=== PATIENT | female | born 1995 | race Caucasian/White ===

== ENCOUNTER 2019-03-05 12:09 | Emergency (ER) | payer OTHER ==
[~2019-03-05] VITALS: Ht 162.6 cm; Wt 67.9 kg
[2019-03-05] MEDS ORDERED: FLINCHW12 PO (12:15)
[2019-03-05 13:04] LABS: BASO % 0.5 % (0.0-1.0); EOS # 0.1 10^3/uL (0.0-0.5); EOS % 1.1 % (0.0-3.0); HEMATOCRIT 35.4 % (36.0-47.0); LYMPH # 0.9 10^3/uL (1.5-5.0); LYMPH % 15.5 % (24.0-44.0); MEAN CORPUSCULAR HEMOGLOBIN 30.8 pg (27.0-33.0); MEAN CORPUSCULAR HGB CONC 33.9 g/dl (32.0-36.5); MEAN CORPUSCULAR VOLUME 90.8 fl (80.0-96.0); MONO # 0.5 10^3/uL (0.0-0.8); MONO % 8.3 % (0.0-5.0); NEUTROPHILS # 4.2 10^3/uL (1.5-8.5); NEUTROPHILS % 74.1 % (36.0-66.0); PLATELET COUNT, AUTOMATED 176 10^3/uL (150-450); WHITE BLOOD COUNT 5.7 10^3/uL (4.0-10.0)
[2019-03-05 13:26] LABS: HCG, SERUM QUALITATIVE POSITIVE (NEGATIVE)
[2019-03-05 13:27] LABS: BLOOD UREA NITROGEN 5 MG/DL (7-18); CALCIUM LEVEL 8.6 MG/DL (8.5-10.1); CARBON DIOXIDE LEVEL 25 MEQ/L (21-32); CHLORIDE LEVEL 107 MEQ/L (98-107); CREATININE FOR GFR 0.53 MG/DL (0.55-1.30); GLOMERULAR FILTRATION RATE > 60.0 (>60); GLUCOSE, FASTING 71 MG/DL (70-100); POTASSIUM SERUM 3.9 MEQ/L (3.5-5.1); SODIUM LEVEL 137 MEQ/L (136-145)
[2019-03-05 14:16] LABS: HCG, SERUM QUANTITATIVE 33211 MIU/ML
--- NOTE | 2019-03-05 14:58 | REP ---
Obstetric sonography: History: Supervision of . Abdominal pain. Findings: Scanning through the gravid uterus demonstrates a viable single intrauterine gestation in a oblique head to the maternal right lie. motion is observed and heart rate is recorded at 145 beats per minute. A posterior fundal placenta is seen without evidence of previa or abruption, grade 0. Amniotic fluid is subjectively normal. Closed cervical length is measured at 4.2 cm, viewed transabdominally. There is a 1.8 cm cyst in the maternal left ovary likely corpus luteum. Exam quality was inhibited by early gestational age and position. The following anatomic structures are identified and felt to be unremarkable: cranium, choroid plexus, cavum, cerebellum and posterior fossa, left-sided stomach, abdominal wall cord insertion, three-vessel cord, Biometry chart: BPD 3.1 cm = 15 weeks 5 days Head circumference 11.5 cm = 15 weeks 4 days Abdominal circumference 9.3 cm = 15 weeks 3 days Femur length 1.6 cm = 14 weeks 6 days Humeral length 1.8 cm = 15 weeks 2 days HC/AC ratio normal 1.24. Cephalic index normal 0.74. Estimated weight 118 grams, 0 pounds 4 ounces, 35th percentile for 15 weeks 3 days. Impression: Viable single intrauterine gestation at 15 weeks 3 days by today's composite sonographic criteria. SHAUN by today's sonography August 24, 2019. anatomic survey is less than complete due to early gestational age and position. No complication is identified. Electronically Signed by Sebastian Rogers MD 03/05/2019 03:04 P
[2019-03-05 16:18] VITALS: BP 108/55
== END 2019-03-05 16:35 | disposition home or self-care (01) ==
LOC: M ED 12:09
DX: O99.89 Other specified diseases and conditions complicating pregnancy, childbirth and the puerperium (principal); R10.2 Pelvic and perineal pain; Z3A.15 15 weeks gestation of pregnancy; Z67.10 Type A blood, Rh positive
CPT/HCPCS: 36415; 76811; 80048; 81001; 81002; 81025; 84702; 84703; 85025; 86900; 86901; 87088; 99283; G0463

== ENCOUNTER 2019-05-31 13:14 | Outpatient (CLI) | payer OTHER ==
[~2019-05-31] VITALS: Ht 162.6 cm; Wt 74.8 kg
[~2019-05-31 13:14] MED LIST: FLINCHW12 PO
== END 2019-05-31 14:35 | disposition home or self-care (01) ==
LOC: M LDO 13:14
PROVIDERS: ATTEND Advanced Practice Midwife
DX: O26.892 Other specified pregnancy related conditions, second trimester (principal); Z3A.27 27 weeks gestation of pregnancy; O99.013 Anemia complicating pregnancy, third trimester

== ENCOUNTER 2019-08-23 19:40 | Outpatient (CLI) | payer OTHER ==
--- NOTE | 2019-08-24 03:03 | HPE ---
DATE OF ADMISSION: 08/23/2019 A 24-year-old, 4, para 2, abortio 1, last menstrual period (LMP) 11/21/2018, estimated date of confinement (EDC) 08/28/2019, at 39 and 2 weeks of gestation with a history of membrane sweeping by her provider, now thinks she has ruptured membranes and has lost her mucus plug. RISK FACTORS: She has had anemia. Chlamydia positive. Test of cure was negative. Group B streptococcus (GBS) positive, and previous history of shoulder dystocia with a fractured clavicle. PAST HISTORY: April 2015, spontaneous vaginal delivery, 8 pounds 11 ounces at 38 weeks of gestation. February 2017, at 38 weeks, 9 pounds 1 ounce, shoulder dystocia, forceps delivery, fractured clavicle. December of 2017, termination of (TOP), had a dilatation and curettage (D and C), no consequences. LABS: O positive, HIV negative, hepatitis negative, RPR negative, rubella immune. Varicella immune. Urine negative. C positive. Test of cure negative. G negative. One-hour glucose 78. GBS is positive. Blood pressure 111/74, respirations 18, pulse 89, temperature is 99.0. Urine is not available. On examination, no distress. Symphysis fundus height is 38. Category I strip with marked variability and accelerations. No decelerations. No contractions. Cervix is posterior, thick, 2-3 cm. Bulging membranes were noted. There was some mucus on the glove, but the head is ballotable. Our plan of management is to discharge her with precautions. Reviewed induction of labor parameters, and she was discharged undelivered. The precautions were kick chart, premature rupture of membranes, bleeding, or contractions 5-7 minutes apart, moderate intensity, 40 seconds. The patient expressed understanding and was discharged undelivered.
== END 2019-08-23 20:35 | disposition home or self-care (01) ==
LOC: M LDO 19:40
PROVIDERS: ATTEND Obstetrics & Gynecology
DX: O47.1 False labor at or after 37 completed weeks of gestation (principal); O99.013 Anemia complicating pregnancy, third trimester; D64.9 Anemia, unspecified; O99.820 Streptococcus B carrier state complicating pregnancy; O98.313 Other infections with a predominantly sexual mode of transmission complicating pregnancy, third trimester; A56.8 Sexually transmitted chlamydial infection of other sites; Z3A.39 39 weeks gestation of pregnancy; Z87.59 Personal history of other complications of pregnancy, childbirth and the puerperium
CPT/HCPCS: 59025; G0378; G0463

== ENCOUNTER 2019-08-24 07:07 | Inpatient (IN) | payer OTHER ==
[~2019-08-24] VITALS: Ht 162.6 cm; Wt 82.5 kg
[2019-08-24] MEDS ORDERED: PENICILLIN G POTASSIUM IV 5 MU in D5W MINI-BAG PLUS 100 ML IV STA (07:29)
[2019-08-24] MEDS ORDERED: LR 1,000 ML IV SCH (07:29)
[2019-08-24] MEDS ORDERED: LACTATED RINGER'S 1000 ML IV ONE (07:30)
--- NOTE | 2019-08-24 08:02 | HPE ---
DATE OF ADMISSION: 08/24/2019 24-year-old 4, para 2, abortio 1, last menstrual period (LMP) 11/21/2018, estimated date of confinement (EDC) 08/28/2019 at 39 and 3 of gestation with a history of membrane sweeping previously. She thought she was in labor and thought her membranes were ruptured. These were negative at the time of evaluation at 0300. She came back today in active labor as she is 6-7 cm, bulging membranes, 100% effaced, -3 station, in significant discomfort from her contractions. Category 1 strip. RISK FACTORS: She had anemia. She was chlamydia positive and test of cure was negative. Group B streptococcus (GBS) is positive. Previous history shoulder dystocia with a fractured clavicle after forceps delivery and induction of labor. Proven pelvis to 9 pounds 1 ounce and previous delivery baby was 8 pounds 6 ounces with no issues. PAST HISTORY: April 2015 - spontaneous vaginal delivery 8 pounds 11 ounces of 38 weeks. February 2017 - 38 weeks, 9 pounds 1 ounce, shoulder dystocia forceps delivery fracture clavicle. December 2017 - termination of (TOP) and dilation and curettage. No consequences. LABS: O+, HIV negative, hep negative, RPR negative, rubella immune, varicella immune. Urine was negative. Chlamydia was positive, test of cure was negative. GBS was positive. 1-hour glucose was 78. Presently a blood pressure, pulse, respirations are within normal limits. She is afebrile at 99.0. Urine was not available. PHYSICAL EXAMINATION: In the examination she is distressed. Symphysis fundus height is 38. Category 1 strip marked variability with accelerations, no decelerations. Contractions are every 4, moderate in intensity. Cervix is 100% effaced, 6-7, bulging membranes, -3 station. There was show on the glove. The rest of the examination unremarkable. She is normocephalic, atraumatic. Neck: Full range of motion. Pupils equally reactive to light. Distal pulses symmetric. No evidence of deep venous thrombosis (DVT), pulmonary embolus (PE) or superficial phlebitis. Chest is clear bilaterally bases. No wheezes or rhonchi. No rashes, lesions or pruritus. No arthralgia, myalgia. No complaint joint pain. No complaint cough, wheeze, shortness of breath or dyspnea on exertion. No bleeding. Neuro complete. No incontinency or frequency. No nausea, vomiting, diarrhea or constipation. No diabetic issues. GYNECOLOGIC HISTORY: No abnormal Pap smears. Was sexually transmitted disease (STD) positive but test of cure was negative. PAST MEDICAL HISTORY: Unremarkable. PAST SURGICAL HISTORY: Unremarkable. FAMILY HISTORY: Noncontributory. SOCIAL HISTORY: She does not smoke, drink abuse drugs. No domestic violence. We discussed the consent for delivery. In view of the fact that she had a shoulder dystocia, we strongly recommend an epidural in place. We discussed the possibility of requiring a section depending on the circumstances and situation that arises. Otherwise, vaginal delivery was discussed. This is again delivery through the vagina with possible use of forceps or vacuum if needed for maternal or indications. There are devices which can assist with vaginal delivery when normal pushing efforts cannot achieve delivery on their own or when delivery is needed in emergency for the baby's well-being. Medications may be used to augment labor including Pitocin and this may help achieve delivery in emergency situations. Because of well being section may be indicated and this will be discussed with her provider prior to performing the section. section is delivery through the abdomen with an incision and usually done only for clinical indications. Risks of vaginal delivery include not limited to bleeding, infection, injury to the vagina pelvic structures, injury to baby, damage to the uterus, reaction to anesthesia, uterine rupture, uterus risk of hysterectomy for life-threatening bleeding or . Medications used to induce or augment labor may increase risk for infection, uterine tachysystole, uterine rupture, heart rate abnormalities, need for emergency section or possible hysterectomy, hemorrhage or . Other indications are use of forceps or vacuum may increase risk of perineal or vaginal lacerations, risk of urinary bowel incontinence. Risk of forceps or vacuum include but not limited to scratches, hematomas on the head or intracranial bleed of the baby. The patient verbalized understanding. We had a 40-minute discussion. PLAN: Hydrate the patient. Appropriate antibiotic coverage. Epidural as required.
[2019-08-24] MEDS ORDERED: OXYTOCIN 30 UNITS IN 0.9% NaCl 500ML IV BAG (J2590) As Ordered ONE (08:14)
[2019-08-24 08:20] LABS: HEMATOCRIT 34.1 % (36.0-47.0); HEMOGLOBIN 11.2 g/dl (12.0-15.5); MEAN CORPUSCULAR HEMOGLOBIN 27.4 pg (27.0-33.0); MEAN CORPUSCULAR HGB CONC 32.8 g/dl (32.0-36.5); MEAN CORPUSCULAR VOLUME 83.4 fl (80.0-96.0); PLATELET COUNT, AUTOMATED 186 10^3/uL (150-450); RED BLOOD COUNT 4.09 10^6/uL (4.00-5.40); WHITE BLOOD COUNT 13.5 10^3/uL (4.0-10.0)
[2019-08-24] MEDS ORDERED: OXYTOCIN DRIP 30 UNITS in IV 1 EA IV SCH (08:39)
[2019-08-24] MEDS ORDERED: MOM 30ML SUSPENSION UDC PO PRN (08:45)
[2019-08-24] MEDS ORDERED: DOCUSATE SODIUM 100 MG CAP PO PRN (08:45)
[2019-08-24] MEDS ORDERED: ONDANSETRON 4MG/2ML VIAL (J2405) IV PRN (08:45)
[2019-08-24] MEDS ORDERED: METHYLERGONOVINE MALEATE 0.2 MG TAB PO PRN (08:45)
[2019-08-24] MEDS ORDERED: MEASLES,MUMPS,RUBELLA VACCINE INJ (MMR-II) (90707) SC SCH (08:45)
[2019-08-24] MEDS ORDERED: DIBUCAINE 1% OINTMENT 30GM TOP PRN (08:45)
[2019-08-24] MEDS ORDERED: ACETAMINOPHEN 500 MG TAB PO PRN (08:45)
[2019-08-24] MEDS ORDERED: IBUPROFEN 800 MG TAB PO PRN (08:45)
[2019-08-24] MEDS: PRENATAL VITAMINS CHEWABLE TABLET PO SCH (09:00)
[2019-08-24] MEDS ORDERED: PENICILLIN G POTASSIUM IV 2.5 MU in IV 1 EA IV SCH (12:00)
[2019-08-24 15:14] VITALS: BP 111/68
[2019-08-24 18:32] VITALS: BP 101/59
[2019-08-25 06:00] VITALS: BP 104/64
--- NOTE | 2019-08-25 09:05 | IPNPDOC ---
Progress Note Date of Service: Aug 25, 2019 Day#: 1 Progress Note SUBJECT: Patient is a 24 yo S/P ppd #1. Patient has no concerns today. She has been ambulating, voiding spontaneously without issue and tolerating regular diet. Breast feeding without issue. Reports lochia is like a normal period. she is considering depo provera vs. LARC for contraceptives. She did not get full 4 hrs after first dose of PCN prior to delivering. OBJECTIVE: VITAL SIGNS: Within normal limits, afebrile. Alert and oriented times three. Abdomen: Fundus firm at U-2. Soft, NTTP. LE: no edema/erythema/tenderness A/P patient is ppd #1, doing well. discussed contraceptive options, will revisit with appointment. encourage bf. routine ppc. likely d/c tomorrow. le, DO VS, I&O, 24H, Fishbone Vital Signs/I&O Vital Signs Date Time Temp Pulse Resp B/P (MAP) Pulse Ox O2 Delivery O2 Flow Rate FiO2 08/25/19 06:00 97.1 80 16 104/64 (77) I&O- Last 24 Hours up to 6 AM 08/25/19 06:00 Output Total 250 ml Balance -250 ml KIRSTIE OSPINA DO Aug 25, 2019 09:05
[2019-08-25] MEDS: PRENATAL VITAMINS CHEWABLE TABLET PO SCH (09:06)
[2019-08-25 18:24] VITALS: BP 110/62
[2019-08-26 06:00] VITALS: BP 98/65
[2019-08-26] MEDS ORDERED: DOCU100C16 PO (07:23)
[2019-08-26] MEDS ORDERED: IBUP80TA PO (07:23)
[2019-08-26] MEDS ORDERED: DIBU10OI TOP (07:23)
[2019-08-26] MEDS: PRENATAL VITAMINS CHEWABLE TABLET PO SCH (08:34)
--- NOTE | 2019-08-26 09:14 | DSES ---
DATE OF ADMISSION: 08/24/2019 DATE OF DISCHARGE: 08/26/2019 This lady is a 24-year-old 4 now para 3 admitted at 39 and 3 of gestation in active labor, had a spontaneous vaginal delivery female weighing 3750 grams, scores of 8 and 9 at 1 and 5 minutes, respectively. On her second day, we discussed phlebitis, cystitis, mastitis, endometritis, cellulitis, diet, exercise, pain management, perineal/breast/wound care. On discharge, her blood pressure was 98/65, respirations 17, pulse 71, temperature is 96.8. Her hemoglobin on admission was 11.2, hematocrit 34.1 and platelets were 186. The rest of the examination was unremarkable. Normocephalic, atraumatic. Neck: Full range of motion. Pupils equal and reactive to light. Distal pulses symmetric. No evidence of DVT, PE or superficial phlebitis. Chest is clear bilaterally to the bases. No wheezes or rhonchi. No CVA tenderness. Abdomen: Soft. Uterus 2 below. Four quadrant bowel sounds are noted. Perineum is intact. No rashes, lesions or pruritus. No arthralgia, myalgia. No complaint joint pain. No complaint cough, wheeze, shortness of breath or dyspnea on exertion. No nausea, vomiting, diarrhea or constipation. No urgency or frequency. In summary, we have a term gestation, delivered, live female . She is breast-feeding presently. Going to see a bleach maker at [facility]. Plans are to pickup medications at [facility] and discharge with instructions to call [facility] for 6-week checkup. The patient and baby were discharged improved. edited: 08/27/2019 1254 tkf MTDD
== END 2019-08-26 12:05 | disposition home or self-care (01) | DRG 807 ==
LOC: M LDO 07:07 → M LDI 07:19 → M OBS 14:50 → M PED 08-26 11:51
PROVIDERS: ADMIT Obstetrics & Gynecology; ATTEND Advanced Practice Midwife
PROC: 10E0XZZ Delivery of Products of Conception, External Approach (ICD-10-PCS; principal; 2019-08-24)
DX: O99.02 Anemia complicating childbirth (principal); Z37.0 Single live birth; D64.9 Anemia, unspecified; O99.824 Streptococcus B carrier state complicating childbirth; Z3A.39 39 weeks gestation of pregnancy

== ENCOUNTER 2019-11-20 18:22 | Emergency (ER) | payer OTHER ==
[~2019-11-20] VITALS: Ht 165.1 cm; Wt 71.6 kg
[~2019-11-20 18:22] MED LIST changes: +DIBU10OI TOP; +DOCU100C16 PO; +IBUP80TA PO
[2019-11-20] MEDS ORDERED: TYL (18:29)
[2019-11-20] MEDS ORDERED: CIPR500T3 PO (18:29)
[2019-11-20] MEDS ORDERED: PHEN-593 (18:29)
[2019-11-20] MEDS ORDERED: NITR100C2 (18:29)
[2019-11-20] MEDS ORDERED: ONDANSETRON 4MG/2ML VIAL IV ONE (19:00)
[2019-11-20] MEDS ORDERED: MORPHINE 2 MG/ML 1ML VIAL (J2270) IV ONE ×2 (19:00→20:45)
[2019-11-20] MEDS ORDERED: NS 1,000 ML IV ONE (19:00)
[2019-11-20 19:39] LABS: BASO % 0.3 % (0.0-1.0); EOS # 0.1 10^3/uL (0.0-0.5); EOS % 1.3 % (0.0-3.0); HEMATOCRIT 35.7 % (36.0-47.0); HEMOGLOBIN 11.5 g/dl (12.0-15.5); LYMPH # 1.4 10^3/uL (1.5-5.0); MEAN CORPUSCULAR HEMOGLOBIN 29.8 pg (27.0-33.0); MEAN CORPUSCULAR HGB CONC 32.2 g/dl (32.0-36.5); MEAN CORPUSCULAR VOLUME 92.5 fl (80.0-96.0); MONO # 0.6 10^3/uL (0.0-0.8); MONO % 8.9 % (0.0-5.0); NEUTROPHILS # 4.1 10^3/uL (1.5-8.5); PLATELET COUNT, AUTOMATED 238 10^3/uL (150-450); RED BLOOD COUNT 3.86 10^6/uL (4.00-5.40); WHITE BLOOD COUNT 6.2 10^3/uL (4.0-10.0)
[2019-11-20 20:00] LABS: ALBUMIN 3.2 GM/DL (3.2-5.2); BILIRUBIN,DIRECT 0.1 MG/DL (0.0-0.2); BILIRUBIN,TOTAL 0.2 MG/DL (0.2-1.0); TOTAL PROTEIN 6.7 GM/DL (6.4-8.2)
--- NOTE | 2019-11-20 20:19 | REPVR ---
PROCEDURE INFORMATION: Exam: US Abdomen, Limited; Right Upper Quadrant Exam date and time: 11/20/2019 7:55 PM Age: 24 years old Clinical indication: Abdominal pain; Acute; Additional info: Ruq pain/back pain possible gallbladder path TECHNIQUE: Imaging protocol: US abdomen. Real time ultrasound with image documentation. Limited exam focused on the right upper quadrant. COMPARISON: No relevant prior studies available. FINDINGS: Liver: Normal. No masses. Gallbladder: There is an echogenic shadowing stone within the neck of the gallbladder. There is a 3.5 cm diameter area of hypoechogenicity with a thickness of approximately 6 mm within the gallbladder fundus. This hypoechoic thickening contains a few echogenic foci. Differential diagnosis includes gallbladder sludge containing tiny stones versus focal gallbladder wall thickening with calcification. Nonemergent follow-up surgical consultation is recommended. No pericholecystic fluid. Common bile duct: Normal caliber common bile duct measuring 5 mm. Pancreas: Visualized pancreas is unremarkable. Right kidney: The right kidney measures 11.7 cm in length. No right renal stone or hydronephrosis. IMPRESSION: 1. Cholelithiasis. 2. Small amount of gallbladder sludge containing tiny calcified stones versus focal gallbladder wall thickening with wall calcification involving the gallbladder fundus. Nonemergent follow-up surgical consultation is recommended. Electronically signed by: Mario Grey On 11/20/2019 20:19:07 PM
[2019-11-20] MEDS ORDERED: NORC1TAB7 PO ×3 (21:12→21:49)
[2019-11-20] MEDS ORDERED: ONDA4TAB6 PO (21:12)
[2019-11-20] MEDS ORDERED: PEPC1TAB5 PO (21:12)
[2019-11-20] MEDS ORDERED: NORCO, ANEXSIA 5/325MG TABLET (HYDROcodone/ACETAMINOPHEN) PO ONE (21:15)
[2019-11-20 21:27] VITALS: BP 100/58
--- NOTE | 2019-11-21 13:18 | ED PDOC ---
Post-Departure Follow-Up dr real and kenna murguia faxed formal report of us for fu Lore Riggs MD Nov 21, 2019 13:18
== END 2019-11-20 22:18 | disposition home or self-care (01) ==
LOC: M ED 18:22
DX: K80.60 Calculus of gallbladder and bile duct with cholecystitis, unspecified, without obstruction (principal); K87 Disorders of gallbladder, biliary tract and pancreas in diseases classified elsewhere
CPT/HCPCS: 76705; 80047; 80076; 81001; 83690; 84702; 85025; 87088; 96361; 96374; 96375; 96376; 99284; J2270; J2405

== ENCOUNTER 2019-11-23 08:31 | Inpatient (IN) | payer OTHER ==
[~2019-11-23] VITALS: Ht 165.1 cm; Wt 70.3 kg
[~2019-11-23 08:31] MED LIST changes: +CIPR500T3 PO; +NITR100C2; +NORC1TAB7 PO; +ONDA4TAB6 PO; +PEPC1TAB5 PO; +PHEN-593; +TYL
[2019-11-23] MEDS ORDERED: ONDANSETRON 4MG/2ML VIAL IV ONE (08:45)
[2019-11-23] MEDS ORDERED: KETOROLAC 30 MG/ML 1ML VIAL IV ONE (08:45)
[2019-11-23] MEDS ORDERED: NS 1,000 ML IV ONE (08:45)
[2019-11-23 09:11] LABS: BASO % 0.5 % (0.0-1.0); EOS # 0.1 10^3/uL (0.0-0.5); EOS % 1.5 % (0.0-3.0); HEMATOCRIT 36.8 % (36.0-47.0); HEMOGLOBIN 12.3 g/dl (12.0-15.5); LYMPH # 1.3 10^3/uL (1.5-5.0); LYMPH % 22.8 % (24.0-44.0); MEAN CORPUSCULAR HEMOGLOBIN 29.9 pg (27.0-33.0); MEAN CORPUSCULAR HGB CONC 33.4 g/dl (32.0-36.5); MEAN CORPUSCULAR VOLUME 89.3 fl (80.0-96.0); MONO # 0.4 10^3/uL (0.0-0.8); MONO % 6.5 % (0.0-5.0); NEUTROPHILS % 68.5 % (36.0-66.0); PLATELET COUNT, AUTOMATED 256 10^3/uL (150-450); RED BLOOD COUNT 4.12 10^6/uL (4.00-5.40); WHITE BLOOD COUNT 5.9 10^3/uL (4.0-10.0)
[2019-11-23 09:40] LABS: ALBUMIN 3.1 GM/DL (3.2-5.2); ALT/SGPT 31 U/L (12-78); BILIRUBIN,DIRECT 0.2 MG/DL (0.0-0.2); BILIRUBIN,TOTAL 0.5 MG/DL (0.2-1.0); BLOOD UREA NITROGEN 6 MG/DL (7-18); CALCIUM LEVEL 8.8 MG/DL (8.5-10.1); CARBON DIOXIDE LEVEL 26 MEQ/L (21-32); CHLORIDE LEVEL 107 MEQ/L (98-107); CREATININE FOR GFR 0.88 MG/DL (0.55-1.30); GLOMERULAR FILTRATION RATE > 60.0 (>60); GLUCOSE, FASTING 76 MG/DL (70-100); LIPASE 86 U/L (73-393); POTASSIUM SERUM 3.6 MEQ/L (3.5-5.1); SODIUM LEVEL 140 MEQ/L (136-145)
[2019-11-23] MEDS ORDERED: MORPHINE 4 MG/ML 1ML VIAL/SYRINGE (J2270) IV ONE ×2 (09:45→13:30)
--- NOTE | 2019-11-23 12:11 | REP ---
RIGHT UPPER QUADRANT ULTRASOUND: Real-time sonographic evaluation of the right upper quadrant. The gallbladder is moderately distended and the patient is tender at that site, with transducer pressure. There is a 2 cm gallstones lodged in the neck of the gallbladder, non-mobile. Mild sludge and stones are seen in the gallbladder lumen. There is no gallbladder wall thickening or pericholecystic fluid. There is no definite intrahepatic biliary dilatation. The common bile duct is dilated at 10 mm. The liver and pancreas are grossly unremarkable, pancreas not optimally seen due to overlying bowel gas. Right kidney demonstrates no hydronephrosis with normal size 10.4 cm in length. IMPRESSION: Gallstone lodged in the neck of the gallbladder which is non-mobile and measures about 2 cm in diameter. Mild sludge and stones in the remaining gallbladder with moderate gallbladder distention. The patient is tender at that site. There is dilatation of the common bile duct at 10 mm. No gallbladder wall thickening or free fluid. Findings may indicate cholecystitis. Electronically Signed by Ric Vasques MD 11/26/2019 10:18 P
[2019-11-23] MEDS ORDERED: HYDR-3713 PO (16:02)
[2019-11-23] MEDS ORDERED: ONDA4TAB6 PO (16:02)
[2019-11-23] MEDS ORDERED: ONDANSETRON 4MG/2ML VIAL IV PRN (17:15)
[2019-11-23] MEDS: NS 1,000 ML IV SCH (18:10)
[2019-11-23] MEDS: KETOROLAC 30 MG/ML 1ML VIAL IV SCH (18:11)
[2019-11-23 18:41] VITALS: BP 118/59
[2019-11-23] MEDS: PIPERACILLIN/TAZOBACTAM SOD 3.375 GM in D5W MINI-BAG PLUS 50 ML IV SCH (19:04)
[2019-11-23 20:00] VITALS: BP 110/64
[2019-11-24] VITALS (11 sets, daily range): BP systolic 102–120; BP diastolic 56–72
[2019-11-24] MEDS: PIPERACILLIN/TAZOBACTAM SOD 3.375 GM in D5W MINI-BAG PLUS 50 ML IV SCH ×5 (00:28→23:36)
[2019-11-24] MEDS: KETOROLAC 30 MG/ML 1ML VIAL IV SCH ×4 (00:28→21:58)
--- NOTE | 2019-11-24 00:48 | REP ---
MRCP: MRCP exam is accomplished utilizing multiple heavily T2-weighted sequences in the axial and coronal planes. MIP reconstruction images are performed. Common bile duct is dilated up to 10 mm, as seen on today's ultrasound. There is no evidence of choledocholithiasis. There is a stone in the neck of the gallbladder. This was seen on the ultrasound and measures about 2 cm in diameter. Gallbladder is moderately distended. There is slight prominence of central intrahepatic ducts. Pancreatic duct is not dilated. There is a tiny amount of free fluid in the right upper quadrant around the liver. IMPRESSION: There is a 2 cm calculus in the neck of the gallbladder with moderate distention of the gallbladder. Mild dilatation of central intrahepatic bile ducts. There is dilatation of the common bile duct, 10 mm. There is no evidence of choledocholithiasis. There is a tiny amount of free fluid around the liver. Electronically Signed by Ric Vasques MD 11/26/2019 10:46 P
[2019-11-24] MEDS: NS 1,000 ML IV SCH ×3 (04:04→18:26)
[2019-11-24 06:27] LABS: HEMATOCRIT 32.1 % (36.0-47.0); HEMOGLOBIN 10.4 g/dl (12.0-15.5); MEAN CORPUSCULAR HEMOGLOBIN 29.7 pg (27.0-33.0); MEAN CORPUSCULAR HGB CONC 32.4 g/dl (32.0-36.5); MEAN CORPUSCULAR VOLUME 91.7 fl (80.0-96.0); PLATELET COUNT, AUTOMATED 209 10^3/uL (150-450); WHITE BLOOD COUNT 4.7 10^3/uL (4.0-10.0)
[2019-11-24 06:42] LABS: ALBUMIN 2.5 GM/DL (3.2-5.2); ALT/SGPT 38 U/L (12-78); BILIRUBIN,TOTAL 0.6 MG/DL (0.2-1.0); BLOOD UREA NITROGEN 10 MG/DL (7-18); CALCIUM LEVEL 7.8 MG/DL (8.5-10.1); CARBON DIOXIDE LEVEL 23 MEQ/L (21-32); CHLORIDE LEVEL 110 MEQ/L (98-107); GLOMERULAR FILTRATION RATE > 60.0 (>60); GLUCOSE, FASTING 63 MG/DL (70-100); POTASSIUM SERUM 3.9 MEQ/L (3.5-5.1); SODIUM LEVEL 142 MEQ/L (136-145)
[2019-11-24] MEDS: HYDROmorphone 2 MG TAB PO PRN ×2 (07:55→18:07)
[2019-11-24] MEDS ORDERED: BUPIVACAINE/EPIN 0.25% 30 ML VIAL As Ordered ONE (13:10)
[2019-11-24] MEDS ORDERED: CONRAY-60 60% 50ML VIAL (Q9961) As Ordered ONE (13:10)
[2019-11-24] MEDS ORDERED: GLUCAGON INJ 1MG VIAL As Ordered ONE (13:10)
[2019-11-24] MEDS ORDERED: ROCURONIUM BROMIDE 50 MG/5 ML VIAL As Ordered ONE (14:19)
[2019-11-24] MEDS ORDERED: LIDOCAINE 2% 100MG/5ML SDV (FOR ANES.) As Ordered ONE (14:20)
[2019-11-24] MEDS ORDERED: MIDAZOLAM INJ 2MG/2ML VIAL (J2250 PER 1MG) As Ordered ONE (14:21)
[2019-11-24] MEDS ORDERED: propofoL 200 MG/20 ML VIAL As Ordered ONE (14:21)
[2019-11-24] MEDS ORDERED: fentaNYL 250 MCG/5 ML INJECTION (J3010) As Ordered ONE (14:23)
[2019-11-24] MEDS ORDERED: dexameTHASONE 4 MG/ML 1ML VIAL (J1100 PER 1MG) As Ordered ONE (14:52)
[2019-11-24] MEDS ORDERED: ONDANSETRON 4MG/2ML VIAL As Ordered ONE (14:52)
[2019-11-24] MEDS ORDERED: SUGAMMADEX SODIUM 500 MG/5 ML VIAL (BRIDION) As Ordered ONE (14:52)
[2019-11-24] MEDS ORDERED: KETOROLAC 60MG 2ML VIAL As Ordered ONE (14:53)
--- NOTE | 2019-11-24 15:53 | HPE ---
DATE OF ADMISSION: 11/23/2019 The patient is a 24-year-old female who presented earlier this week with evidence of right upper quadrant pain and evidence of gallstones. She presented to the emergency room with a normal white count, normal liver function tests and was treated for biliary colic / possible subacute cholecystitis. Was discharged home on pain medication and returns today with continuing pain discomfort with continued normal white count. However, on her repeat ultrasound she ended up having a common bile duct that had increased in size to 1 cm as well as gallstones and one of which seemed to be lodged in the neck of the gallbladder. The patient had an MRCP because of her ongoing pain and discomfort and with gallbladder distension revealed no evidence of choledocholithiasis. And she has not had any acholic stools. No bilirubinuria. No fevers or chills. Some mild nausea and complains of pain in the epigastric area as well as the right upper quadrant area. Noticed that when she had the gallbladder ultrasounds each time she had severe pain and discomfort with the transducer in the right upper quadrant consistent with a ultrasound positive Oshea's. PAST MEDICAL HISTORY: Is history of recent delivery. MEDICATIONS: None. ALLERGIES: None. PHYSICAL EXAMINATION: Reveals a 24-year-old female who looks stated age. HEENT: Unremarkable. NECK: Supple without adenopathy. LUNGS: Clear to auscultation without crackles, wheezes or rhonchi. HEART: Regular without murmur. ABDOMEN: Soft, nondistended, mildly tender in the epigastric area as well as in the right upper quadrant with some guarding in the right upper quadrant without rebound without significant peritoneal signs. IMPRESSION AND PLAN: The patient has evidence of cholecystitis, although I do wonder with the dilated duct if she did have a stone that passed although without any LFT abnormalities this seems less likely. In any case it is very reasonable to admit her with IV fluids, IV antibiotics and since she has failed outpatient treatment would recommend that we proceed with laparoscopic cholecystectomy tomorrow. The operation has been discussed extensively with the patient, the risks as well as benefits associated with it, and she would like to proceed with this as scheduled.
[2019-11-24] MEDS ORDERED: fentaNYL 100 MCG/2 ML INJECTION (J3010) As Ordered ONE (16:03)
[2019-11-24] MEDS: fentaNYL 100 MCG/2 ML INJECTION (J3010) IV PRN ×2 (16:04→16:09)
[2019-11-24] MEDS: PERCOCET 5MG/325MG TAB PO PRN ×2 (16:11→16:50)
[2019-11-24] MEDS ORDERED: PERCOCET 5MG/325MG TAB As Ordered ONE ×2 (16:14→16:49)
[2019-11-24] MEDS ORDERED: METOCLOPRAMIDE INJ 10MG/2ML VIAL (J2765 PER 1) IV PRN (16:15)
[2019-11-24] MEDS ORDERED: LR 1,000 ML IV SCH (16:15)
[2019-11-24] MEDS ORDERED: ONDANSETRON 4MG/2ML VIAL IV PRN (16:15)
[2019-11-25] VITALS: BP 112/63
[2019-11-25] MEDS: KETOROLAC 30 MG/ML 1ML VIAL IV SCH ×2 (03:53→09:52)
[2019-11-25 04:00] VITALS: BP 108/67
--- NOTE | 2019-11-25 06:28 | RO ---
DATE OF PROCEDURE: PREOPERATIVE DIAGNOSIS: Acute cholecystitis. POSTOPERATIVE DIAGNOSIS: Acute cholecystitis. PROCEDURE: Laparoscopic cholecystectomy. SURGEON: Ishan Kruse MD REQUISITION APPROVER: ANESTHESIA: General endotracheal anesthesia. ESTIMATED BLOOD LOSS (EBL): Minimal. FLUIDS: Crystalloid. BRIEF PROCEDURE SUMMARY: The patient was brought to the operating room, was given general anesthesia. After adequate anesthesia and preoperative antibiotics were given, the patient was prepped and draped in the usual sterile fashion. Next, a supraumbilical incision was made with skin knife. Blunt dissection was carried down to fascia. Fascia was entered with Veress needle, insufflated to 15 mm of pressure. A dilating 10 mm trocar was placed and under direct visualization an epigastric and two lateral trocars were placed. The gallbladder was very thickened and tensely distended with gallbladder wall edema and some chronic inflammatory changes. I needed to use an aspiration needle to decompress this. Once this was decompressed, I was able to grasp it and retract it superiorly, but there were numerous adhesions of the omentum to the gallbladder, which were taken down by hook cautery and eventually, once this was nicely taken down neck the gallbladder could be seen. Even the neck of the gallbladder was actually adherent to the liver and I was able to mobilize this off the liver given that the adhesions were not probably present for more than just this week. In any case, the peritoneum on the lateral aspect of the neck of the gallbladder was taken down with hook cautery and this continued up to the neck of the gallbladder. This was followed for a bit around the anterior surface and then the gallbladder was mobilized further at this point with the peritoneum taken down on the medial as well as lateral aspect and the cystic artery could be well visualize. This was actually followed up onto the gallbladder for at least a centimeter and a half. Then, once this was nicely dissected out and could be seen to be pulsatile, I clipped this proximally and distally and transected it allowing me to mobilize the gallbladder even better at this time. Once a very large window behind the neck of the gallbladder was created, I continued to dissect down towards the neck of the gallbladder, cystic duct area and this was cleared of surrounding tissue. once this was dissected out, then I could nicely see the transition from the neck of the gallbladder to the cystic duct area. This was clipped proximally and distally times two and then the cystic duct transected. The gallbladder was then taken from the gallbladder bed using electrocautery. There was some significant edema in the wall and it was started to get quite adherent to the gallbladder bed, but this was eventually mobilized adequately. Once it was adequately mobilized and taken off the gallbladder bed, there was some oozing from the gallbladder bed, which was controlled with electrocautery, and the gallbladder was placed in an Endo Catch bag and brought out through the umbilicus. The right upper quadrant was copiously irrigated until clear and all trocars removed under direct visualization. #0 Vicryl was used to close the fascia at the umbilicus and all incisions were closed with #4-0 Vicryl. Steri-Strips and dry sterile dressing was applied. The patient was awakened, extubated, brought to recovery room awake, alert, hemodynamically stable. Sponge and needle counts correct times two.
[2019-11-25 07:24] LABS: HEMATOCRIT 31.7 % (36.0-47.0); HEMOGLOBIN 10.5 g/dl (12.0-15.5); MEAN CORPUSCULAR HEMOGLOBIN 29.7 pg (27.0-33.0); MEAN CORPUSCULAR HGB CONC 33.1 g/dl (32.0-36.5); MEAN CORPUSCULAR VOLUME 89.8 fl (80.0-96.0); PLATELET COUNT, AUTOMATED 228 10^3/uL (150-450); RED BLOOD COUNT 3.53 10^6/uL (4.00-5.40); WHITE BLOOD COUNT 7.7 10^3/uL (4.0-10.0)
[2019-11-25 07:57] LABS: ALBUMIN 2.6 GM/DL (3.2-5.2); ALT/SGPT 56 U/L (12-78); BILIRUBIN,TOTAL 0.2 MG/DL (0.2-1.0); BLOOD UREA NITROGEN 6 MG/DL (7-18); CALCIUM LEVEL 8.1 MG/DL (8.5-10.1); CARBON DIOXIDE LEVEL 21 MEQ/L (21-32); CHLORIDE LEVEL 109 MEQ/L (98-107); CREATININE FOR GFR 0.79 MG/DL (0.55-1.30); GLOMERULAR FILTRATION RATE > 60.0 (>60); GLUCOSE, FASTING 195 MG/DL (70-100); POTASSIUM SERUM 3.9 MEQ/L (3.5-5.1); SODIUM LEVEL 137 MEQ/L (136-145); TOTAL PROTEIN 6.3 GM/DL (6.4-8.2)
[2019-11-25 08:00] VITALS: BP 111/72
[2019-11-25] MEDS: HYDROmorphone 2 MG TAB PO PRN (08:12)
[2019-11-25 08:42] VITALS: BP 108/67
--- NOTE | 2019-11-26 08:59 | IPN ---
DATE: 11/25/2019 HISTORY: The patient is today postop day #1 from a laparoscopic cholecystectomy by Dr. Kruse for acute cholecystitis. She reports that she is feeling pretty well with diminished discomfort. She has had no nausea or vomiting and is tolerating a diet. Vital signs show that she has been afebrile over the past 24 hours. Her pulse is in the 40s to 60 and her blood pressure is excellent. Intake and output shows that yesterday she had 4 liters in with almost 2 liters of urine out. Her urine output has been excellent today as well. PHYSICAL EXAMINATION: The patient was sitting up in the bed at the time of my visit. She is alert and oriented. She appears quite comfortable. Heart exam shows a regular rate and rhythm. The lungs are clear. The abdomen is nondistended. She has bowel sounds present. She has four small incisions that are dressed with gauze covered by Opsite's. Laboratory studies today show white count of 8, hemoglobin 10, hematocrit 32, and a platelet count of 228,000. Chemistry profile shows normal electrolytes with the exception of a minimal elevation of the chloride to 109. Her BUN is 6 with a creatinine of 0.8 and a glucose of 195. Liver function tests are normal with a protein of 6.3 and an albumin of 2.6. IMPRESSION: The patient is doing very well 1 day postop from a laparoscopic cholecystectomy for acute cholecystitis. PLAN: The patient will be discharged home. She should followup with Dr. Kruse in the office in approximately 10-14 days. She was advised to avoid any strenuous activity or lifting greater than 25 pounds for 2 weeks. She can take a regular diet, although I advised her to follow a low-fat diet initially to see how her body response to the lack of the gallbladder. She can shower as desired. She can remove the OpSite's and gauze pads in 2 days or sooner if they get wet beneath the OpSite. She is to leave the Steri-Strips to come off on their own. She can call the office as needed for any problems. She was provided by Dr. Kruse with a prescription for some [place] to take as needed.
== END 2019-11-25 12:40 | disposition home or self-care (01) | DRG 419 ==
LOC: M ED 08:31 → M ED INP 17:04 → ENRESERV 17:18 → M PED 18:30
PROVIDERS: ADMIT Surgery; ATTEND Surgery
PROC: 0FT44ZZ Resection of Gallbladder, Percutaneous Endoscopic Approach (ICD-10-PCS; principal; 2019-11-23)
DX: K81.0 Acute cholecystitis (principal)